=== PATIENT | male | born 1960 | race Caucasian/White ===

== ENCOUNTER 2018-06-07 12:24 | Inpatient (IN) | payer OTHER ==
[2018-06-07 13:57] VITALS: BMI 24.9
--- NOTE | 2018-06-07 15:00 | HP ---
CIWA Score - CIWA Score Nausea/Vomitin Muscle Tremors: 2 Anxiety: 2 Agitation: 0-Normal Activity Paroxysmal Sweats: 2 Orientation: 1-Uncertain about Date Tacttile Disturbances: 0-None Auditory Disturbances: 0-None Visual Disturbances: 0-None Headache: 3-Moderate CIWA-Ar Total Score: [address] [facility] Chief Complaint: ETOH withdrawal symptoms. Allergies/Adverse Reactions: Allergies Allergy/AdvReac Type Severity Reaction Status Date / Time No Known Allergies Allergy Verified 06/07/18 14:22 History of Present Illness: PATIENT PRESENTS WITH ETOH WITHDRAWAL SYMPTOMS. PATIENT STARTED DRINKING 4 YEARS AGO. DRINKS 7 DRINKS (SCREWDRIVERS) DAILY. LAST DRINK THIS MORNING. PATIENT HISTORY OF SEIZURES. OCCASIONAL HAS TO HAVE A DRINK FIRST THING IN THE MORNING. +H/O BLACKOUTS, LAST TIME 06/04/18. PATIENT SMOKES COCAINE ON OCCASION WHEN AVAILABLE. LAST TIME HE SMOKED COCAINE WAS 06/04/18. DENIES SIGNIFICANT PMH. REPORTS FEELING DEPRESSED SINCE RECENT BREAK UP WITH GIRLFRIEND. DENIES SI/ HI. LAST ATTEMPT AT DETOX WAS HERE AT [facility] 07/27. Exam Limitations: No Limitations - Ebola screening Have you traveled outside of the country in the last 21 days: No Have you had contact with anyone from an Ebola affected area: No Have you been sick,other than usual withdrawal symptoms: No - Review of Systems Constitutional: Chills, Night Sweats, Changes in sleep, Unexplained wgt Loss EENT: reports: No Symptoms Reported Respiratory: reports: No Symptoms reported Cardiac: reports: No Symptoms Reported GI: reports: Diarrhea, Nausea, Poor Fluid Intake, Abdominal cramping : reports: No Symptoms Reported Musculoskeletal: reports: Back Pain, Muscle Pain Integumentary: reports: Sweating Neuro: reports: Headache, Tremors Endocrine: reports: Unexplained Weight Loss Hematology: reports: No Symptoms Reported Psychiatric: reports: Anxious, Depressed, other (FORGETFUL WITH DATE) Patient History - Patient Medical History Hx Anemia: No Hx Asthma: No Hx Chronic Obstructive Pulmonary Disease (COPD): No Hx Cancer: No Hx Cardiac Disorders: No Hx Congestive Heart Failure: No Hx Hypertension: No Hx Hypercholesterolemia: No Hx Pacemaker: No HX Cerebrovascular Accident: No Hx Seizures: No Hx Dementia: No Hx Diabetes: No Hx Gastrointestinal Disorders: No Hx Liver Disease: No Hx Genitourinary Disorders: No Hx Sexually Transmitted Disorders: No Hx Renal Disease (ESRD): No Hx Thyroid Disease: No Hx Human Immunodeficiency Virus (HIV): No Hx Hepatitis C: No Hx Depression: Yes Hx Suicide Attempt: No Hx Bipolar Disorder: No Hx Schizophrenia: No - Patient Surgical History Past Surgical History: Yes Hx Neurologic Surgery: Yes Hx Cataract Extraction: No Hx Cardiac Surgery: No Hx Lung Surgery: No Hx Breast Surgery: No Hx Breast Biopsy: No Hx Abdominal Surgery: No Hx Appendectomy: No Hx Cholecystectomy: No Hx Genitourinary Surgery: No Hx Orthopedic Surgery: Yes Anesthesia Reaction: No - PPD History Previous Implant?: Yes Documented Results: Positive w/o proof PPD to be Administered?: No - Smoking Cessation Smoking history: Current every day smoker Have you smoked in the past 12 months: Yes Aproximately how many cigarettes per day: 20 Cigars Per Day: 0 Hx Chewing Tobacco Use: No Initiated information on smoking cessation: Yes 'Breaking Loose' booklet given: 06/07/18 - Substance & Tx. History Hx Alcohol Use: Yes Hx Substance Use: Yes Substance Use Type: Alcohol, Cocaine, Marijuana Hx Substance Use Treatment: Yes - Substances Abused Cocaine Route: Smoking Frequency: 1-3 times last 30 days Amount used: $100 Age of first use: 58 Date of Last Use: 06/04/18 Alcohol-vodka/beer Route: Oral Frequency: Daily Amount used: 3-4 pts./1-2 6 pks. Age of first use: 17 Date of Last Use: 06/07/18 Marijuana Route: Smoking Frequency: Daily Amount used: $20 Age of first use: 16 Date of Last Use: 06/06/18 Family Disease History - Family Disease History Family Disease History: Other: Brother (no brother) Admission Physical Exam BHS - Vital Signs Vital Signs: Vital Signs - 24 hr 06/07/18 13:55 Temperature 97.7 F Pulse Rate 69 Respiratory 18 Rate Blood Pressure 111/70 - Physical General Appearance: Yes: Tremorous, Sweating, Anxious HEENTM: Yes: EOMI, Hearing grossly Normal, Normocephalic, LUZ, Pharynx Normal Respiratory: Yes: Chest Non-Tender, Lungs Clear, Normal Breath Sounds, No Respiratory Distress, No Accessory Muscle Use Neck: Yes: No masses,lesions,Nodules, Supple Breast: Yes: Breast Exam Deferred Cardiology: Yes: Regular Rhythm, Regular Rate, S1, S2 Abdominal: Yes: Normal Bowel Sounds, Non Tender, Soft Genitourinary: Yes: Within Normal Limits Back: Yes: Normal Inspection, Muscle Spasm Musculoskeletal: Yes: full range of Motion, Gait Steady, Back pain, Muscle Pain Extremities: Yes: Normal Inspection, Normal Range of Motion, Non-Tender, Tremors Neurological: Yes: gambling supervisor II-XII NML intact, Fully Oriented, Alert, Motor Strength 5/5, Depressed Affect Integumentary: Yes: Normal Color, Warm, Moist Lymphatic: Yes: Within Normal Limits Cleared for Admission [facility] - Detox or Rehab [facility] Level of Care: Medically Managed Detox Regimen/Protocol: Librium [facility] Breath Alcohol Content Breath Alcohol Content: 0 Urine Drug Screen - Results Drug Screen Negative: No Urine Drug Screen Results: THC-Marijuana, QUINTIN-Cocaine
[2018-06-07] MEDS ORDERED: LOPERAMIDE HCL 2 MG CAPSULE PO PRN (15:15)
[2018-06-07] MEDS ORDERED: P-EPHED 60MG/TRIPROLIDI 2.5MG TABLET PO PRN (15:15)
[2018-06-07] MEDS ORDERED: MAG HYDROX/AL HYDROX/SIMETH 30 ML UNIT-DOSE CUP PO PRN (15:15)
[2018-06-07] MEDS ORDERED: guaiFENesin/D-METHORPHAN HB 10 ML UNIT-DOSE CUPS PO PRN (15:15)
[2018-06-07] MEDS ORDERED: MAGNESIUM CITRATE 300 ML BOTTLE PO PRN (15:15)
[2018-06-07] MEDS ORDERED: hydrOXYzine PAMOATE 25 MG CAPSULE (FP) PO PRN (15:15)
[2018-06-07] MEDS ORDERED: MAGNESIUM HYDROX 2400MG/30ML ORAL SUSPENSION 30 ML CUP PO PRN (15:15)
[2018-06-07] MEDS ORDERED: ACETAMINOPHEN 325 MG TABLET (FP) PO PRN (15:15)
[2018-06-07] MEDS ORDERED: MENTHOL/PHENOL 1 EACH UD MM PRN (15:15)
[2018-06-07] MEDS ORDERED: IBUPROFEN 400 MG TABLET (FP) PO PRN (15:15)
[2018-06-07] MEDS ORDERED: chlordiazePOXIDE HCL 25 MG CAPSULE PO PRN (15:17)
[2018-06-07] MEDS: chlordiazePOXIDE HCL 25 MG CAPSULE PO SCH ×2 (16:31→22:10)
[2018-06-07] MEDS ORDERED: MELATONIN 5 MG TABLETS PO PRN (22:00)
[2018-06-07] MEDS ORDERED: THIAMINE HCL 100 MG TABLET (FP) PO SCH (22:00)
[2018-06-08] MEDS: chlordiazePOXIDE HCL 25 MG CAPSULE PO SCH ×2 (05:52→10:37)
[2018-06-08 06:20] VITALS: BP 118/61; PULSE 60; TEMP 97
[2018-06-08] MEDS ORDERED: PRENATAL VITAMINS W/ FOLIC ACID TABLET (FP) PO SCH (10:00)
--- NOTE | 2018-06-08 10:27 | CONSULT ---
[facility] Psychiatric Consult - Data Date of interview: 06/08/18 Admission source: [facility] Identifying data: Readmission to [facility] for this 58 y/o male self- referred for detoxification treatment (alcohol,cocaine,marijuana).Admitted to [address] [place] [address]. Patient is single without children,domiciled,unemployed (disabled as per self-report) and supported on SSI benefits. Substance Abuse History: Patient is irritable and marginally cooperative.Declines to discuss this domain.Information is taken from current [facility] report as follows : Smoking history: Current every day smoker. Have you smoked in the past 12 months: Yes. Aproximately how many cigarettes per day: 20. Cigars Per Day: 0. Hx Chewing Tobacco Use: No. Initiated information on smoking cessation: Yes. 'Breaking Loose' booklet given: 06/07/18. - Substance & Tx. History. Hx Alcohol Use: Yes. Hx Substance Use: Yes. Substance Use Type : Alcohol, Cocaine, Marijuana. Hx Substance Use Treatment: Yes. - Substances Abused. Cocaine. Route: Smoking. Frequency: 1-3 times last 30 days. Amount used: $100. Age of first use: 58. Date of Last Use: 06/04/18. Alcohol-vodka/beer. Route: Oral. Frequency: Daily. Amount used: 3-4 pts./1-2 6 pks. Age of first use: 17. Date of Last Use: 06/07/18. Marijuana. Route : Smoking. Frequency: Daily. Amount used: $20. Age of first use: 16. Date of Last Use: 06/06/18 Medical History: Taken from previous records.History of neurosurgery (head trauma). Psychiatric History: Patient denies. Physical/Sexual Abuse/Trauma History: Patient denies. Additional Comment: Urine Drug Screen Results: THC-Marijuana, QUINTIN-Cocaine.Noted. Mental Status Exam - Mental Status Exam Alert and Oriented to: Time, Place, Person Cognitive Function: Good Patient Appearance: Well Groomed Mood: Angry, Hostile, Withdrawn, Irritable Affect: Mood Congruent Patient Behavior: Fatigued, Uncooperative Speech Pattern: Clear Voice Loudness: Normal Thought Process: Intact Thought Disorder: Not Present Hallucinations: Denies Suicidal Ideation: Denies Homicidal Ideation: Denies Insight/Judgement: Poor Sleep: Well Appetite: Good Muscle strength/Tone: Normal (denies pain or stiffness) Gait/Station: Other (not observed ; in bed for entire encounter) Psychiatric Findings - Problem List ([place] 1, 2,3) (1) Alcohol dependence with uncomplicated withdrawal Current Visit: Yes Status: Acute (2) Cannabis dependence, uncomplicated Current Visit: Yes Status: Acute (3) Cocaine dependence, uncomplicated Current Visit: Yes Status: Acute (4) Nicotine dependence Current Visit: Yes Status: Acute Qualifiers: Nicotine product type: cigarettes Substance use status: uncomplicated Qualified Code(s): F17.210 - Nicotine dependence, cigarettes, uncomplicated - Initial Treatment Plan Initial Treatment Plan: Psychoeducation rejected by the patient.Detoxification in progress.Observation.
--- NOTE | 2018-06-08 10:53 | PN ---
BHS CIWA - CIWA Score Nausea/Vomitin Muscle Tremors: 2 Anxiety: 2 Agitation: 2 Paroxysmal Sweats: 2 Orientation: 0-Oriented Tacttile Disturbances: 2-Mild Itch/Numbness/Burn Auditory Disturbances: 0-None Visual Disturbances: 2-Mild Sensitivity Headache: 2-Mild CIWA-Ar Total Score: 16 BHS Progress Note (SOAP) Subjective: Tremors, irritability, muscle aches and sweats Objective: 06/08/18 10:52 Vital Signs 06/08/18 06/08/18 03:30 06:20 Temperature 97 F L Pulse Rate 60 Respiratory 16 18 Rate Blood Pressure 118/61 Labs pending Assessment: 06/08/18 10:53 Withdrawal sx Plan: Continue detox
[2018-06-08 11:32] LABS: HEMATOCRIT 47.5 % (35.4-49); HEMOGLOBIN 15.8 GM/dL (11.7-16.9); MCH 31.2 pg (25.7-33.7); MCHC 33.3 g/dl (32.0-35.9); MEAN CELL VOLUME 93.7 fl (80-96); MEAN PLT VOLUME 8.8 fl (7.5-11.1); PLATELET COUNT 181 K/MM3 (134-434); RBC 5.07 M/mm3 (4.00-5.60); RDW 13.6 % (11.9-15.9); WHITE BLOOD COUNT 6.8 K/mm3 (4.0-10.0)
[2018-06-08 11:33] LABS: ALBUMIN 3.8 g/dl (3.4-5.0); ALK PHOS 65 U/L (45-117); ANION GAP 8 MMOL/L (8-16); BILIRUBIN,TOTAL 0.7 mg/dL (0.2-1); BLOOD UREA NITROGEN 15 mg/dL (7-18); CALCIUM 9.4 mg/dL (8.5-10.1); CHLORIDE 109 mmol/L (98-107); CO2 28 mmol/L (21-32); CREATININE 1.4 mg/dL (0.55-1.3); GLUCOSE,RANDOM 81 mg/dL (74-106); POTASSIUM 3.8 mmol/L (3.5-5.1); SGOT/AST 20 U/L (15-37); SGPT/ALT 21 U/L (13-61); SODIUM 144 mmol/L (136-145)
--- NOTE | 2018-06-08 12:30 | DS ---
[facility] Detox Discharge Summary Admission Date: 06/07/18 Discharge Date: 06/08/18 - History Pertinent Past History: Depression - Physical Exam Results Vital Signs: Vital Signs Temperature 97 F L 06/08/18 06:20 Pulse Rate 60 06/08/18 06:20 Respiratory Rate 18 06/08/18 06:20 Blood Pressure 118/61 06/08/18 06:20 O2 Sat by Pulse Oximetry (%) Pertinent Admission Physical Exam Findings: Withdrawal sx Laboratory Last Values WBC 6.8 K/mm3 (4.0-10.0) 06/08/18 06:00 RBC 5.07 M/mm3 (4.00-5.60) 06/08/18 06:00 Hgb 15.8 GM/dL (11.7-16.9) 06/08/18 06:00 Hct 47.5 % (35.4-49) 06/08/18 06:00 MCV 93.7 fl (80-96) 06/08/18 06:00 MCH 31.2 pg (25.7-33.7) 06/08/18 06:00 MCHC 33.3 g/dl (32.0-35.9) 06/08/18 06:00 RDW 13.6 % (11.9-15.9) 06/08/18 06:00 Plt Count 181 K/MM3 (134-434) 06/08/18 06:00 MPV 8.8 fl (7.5-11.1) D 06/08/18 06:00 Sodium 144 mmol/L (136-145) 06/08/18 06:00 Potassium 3.8 mmol/L (3.5-5.1) 06/08/18 06:00 Chloride 109 mmol/L (98-107) H 06/08/18 06:00 Carbon Dioxide 28 mmol/L (21-32) 06/08/18 06:00 Anion Gap 8 MMOL/L (8-16) 06/08/18 06:00 BUN 15 mg/dL (7-18) 06/08/18 06:00 Creatinine 1.4 mg/dL (0.55-1.3) H 06/08/18 06:00 Creat Clearance w eGFR 52.24 (>60) 06/08/18 06:00 Random Glucose 81 mg/dL (74-106) 06/08/18 06:00 Calcium 9.4 mg/dL (8.5-10.1) 06/08/18 06:00 Total Bilirubin 0.7 mg/dL (0.2-1) 06/08/18 06:00 AST 20 U/L (15-37) 06/08/18 06:00 ALT 21 U/L (13-61) 06/08/18 06:00 Alkaline Phosphatase 65 U/L (45-117) 06/08/18 06:00 Total Protein 7.0 g/dl (6.4-8.2) 06/08/18 06:00 Albumin 3.8 g/dl (3.4-5.0) 06/08/18 06:00 RPR Titer Nonreactive (NONREACTIVE) 06/08/18 06:00 Labs noted - Medication Discharge Medications: Ambulatory Orders NK [No Known Home Medication] 07/16/17 - Diagnosis (1) Alcohol dependence with uncomplicated withdrawal Status: Acute (2) Cannabis dependence, uncomplicated Status: Acute (3) Cocaine dependence, uncomplicated Status: Acute (4) Nicotine dependence Status: Acute Qualifiers: Nicotine product type: cigarettes Substance use status: uncomplicated Qualified Code(s): F17.210 - Nicotine dependence, cigarettes, uncomplicated (5) Depressed affect Status: Suspected - AMA Did Patient Leave Against Medical Advice: Yes
[2018-06-08] MEDS ORDERED: chlordiazePOXIDE HCL 25 MG CAPSULE PO SCH (17:00)
--- NOTE | 2018-06-08 23:25 | EKG ---
Test Reason : Blood Pressure : / mmHG Vent. Rate : 069 BPM Atrial Rate : 069 BPM P-R Int : 184 ms QRS Dur : 096 ms QT Int : 408 ms P-R-T Axes : 045 043 048 degrees QTc Int : 437 ms NORMAL SINUS RHYTHM NORMAL ECG WHEN COMPARED WITH ECG OF 16-JUL-2017 19:56, NO SIGNIFICANT CHANGE WAS FOUND Confirmed by ABRAM LANE MD ([id number]) on 06/08/2018 11:24:38 PM Referred By: Confirmed By:ABRAM LANE MD
[2018-06-09] MEDS ORDERED: chlordiazePOXIDE 5 MG CAPSULE PO SCH (17:00)
[2018-06-10] MEDS ORDERED: chlordiazePOXIDE HCL 10 MG CAPSULE PO SCH (17:00)
== END 2018-06-08 12:09 | disposition left against medical advice (07) | DRG 770 ==
LOC: YASAS 12:24 → Y3N 15:11
PROC: HZ2ZZZZ Detoxification Services for Substance Abuse Treatment (ICD-10-PCS; principal; 2018-06-07)
DX: F10.230 Alcohol dependence with withdrawal, uncomplicated (principal); F14.20 Cocaine dependence, uncomplicated; F12.20 Cannabis dependence, uncomplicated; F17.210 Nicotine dependence, cigarettes, uncomplicated; F32.9 Major depressive disorder, single episode, unspecified; R45.89 Other symptoms and signs involving emotional state
CPT/HCPCS: 36415; 80053; 85027; 86593; 93005; 93010